=== PATIENT | female | born 1990 | race Caucasian/White ===

== ENCOUNTER 2018-09-14 20:05 | Emergency (ER) | payer MEDICAID ==
[~2018-09-14] VITALS: Ht 162.6 cm; Wt 58.1 kg
[2018-09-14 20:14] VITALS: BP 128/77
--- NOTE | 2018-09-14 20:18 | NUR ---
PT AMBULATED TO LOBBY.
--- NOTE | 2018-09-14 20:24 | NUR ---
PT AMBULATED TO CHAIR E.
[2018-09-14 21:40] VITALS: BP 128/77
--- NOTE | 2018-09-14 21:40 | NUR ---
Patient discharged with v/s stable. Written and verbal after care instructions given and explained. Patient verbalized understanding. Ambulatory with steady gait. All questions addressed prior to discharge. Advised to follow up with PMD.
== END 2018-09-14 21:40 | disposition home or self-care (01) ==
LOC: MED 20:05
DX: K08.89 Other specified disorders of teeth and supporting structures (principal); R50.9 Fever, unspecified; Z98.890 Other specified postprocedural states
CPT/HCPCS: 99281